=== PATIENT | female | born 1980 | race Caucasian/White ===

== ENCOUNTER 2016-10-11 12:56 | Emergency (ER) | payer MEDICAID ==
--- NOTE | 2016-10-11 13:30 | ER NURSING DOCUMENTATION ---
Nurse's Notes [facility] Name:Danish Ding Age:35 yrs Sex:Female :1980 Arrival Date:10/11/2016 Time:12:56 Bed1 Private MD:Irma Lerma Diagnosis:Acute Back Pain Presentation: 10/11 13:07 Presenting complaint: Patient states: pt states she has been moving for the last few st days and her spinal stenosis has flared up. pt also states that her "right hip popped out and back in and now hurts.". Transition of care: Home. Care prior to arrival: Medication(s) given: Ibuprofen. 13:07 Acuity: COMPA 3 st 13:07 Method Of Arrival: Private Vehicle st Triage Assessment: 13:11 General: Appears uncomfortable, Behavior is cooperative. Pain: Complains of pain in st thoracic area, lumbar area, left low back, right low back and buttocks Pain radiates to right leg and left leg Pain currently is 10 out of 10 on a pain scale. Neuro: Level of Consciousness is awake, alert, Oriented to person, place, time, event, Electrician'S Assistant are equal bilaterally. Cardiovascular: No deficits noted. Respiratory: No deficits noted. GI: No deficits noted. Musculoskeletal: Circulation, motion, and sensation intact. Historical: - Allergies: No known drug Allergies; - Home Meds: 1. Seroquel Oral - PMHx: spinal stinosis; - PSHx: CHOLECYSECTOMY; x4; - Tetanus: < 10 years. - Ebola Screening: : Patient denies exposure to infectious person. Patient denies travel to an Ebola-affected area in the 21 days before illness onset. . - Social history: Smoking status: Patient uses tobacco products, current every day smoker. Patient/guardian denies using alcohol, marijuana. Screenin:13 Infectious Disease Risk None. Abuse screen: Denies threats or abuse. Denies injuries st from another. pt states she feels safe at home. Nutritional screening: No deficits noted. Vital Signs: 13:12 BP 127 / 76; Pulse 105; Resp 18; Temp 97.6; Pulse Ox 96% on R/A; Pain 10/10; st ED Course: 12:57 Patient arrived in ED. ama 12:58 Irma Lerma MD is Private Physician. ama 13:07 Twoly, Summer, RN is Primary Nurse. st 13:[address] 13:13 Js Valadez MD is Attending Physician. matthew 13:13 Valuables Remains with patient. st 13:20 Irma eLrma MD is Referral Physician. matthew Administered Medications: No medications were administered Outcome: 13:21 Discharge ordered by MD. jm 13:29 Discharged to home ambulatory. st 13:29 Condition: stable 13:29 Discharge instructions given to patient, Instructed on discharge instructions, follow up and referral plans. medication usage, Prescriptions given X 1. 13:30 Patient left the ED. st 10/12 09:52 Discharge F/U Call: Unable to reach: no answer st 04 11:15 Discharge F/U Call: Unable to reach: no answer st 12:46 Discharge F/U Call: Spoke with: patient. other: Name: pt states she is not feeling st much better but she is functional. Signatures: Cindy Meehan RN RN st Meyer, John, MD MD jm Averdick, Andrew, Reg Reg ama
--- NOTE | 2016-10-11 13:30 | ER PHYSICIAN DOCUMENTATION ---
Physician Documentation [facility] Name:Danish Ding Age:35 yrs Sex:Female :1980 Arrival Date:10/11/2016 Time:12:56 Bed1 Private MD:Irma Lerma ED, John Disposition: 10/11/16 13:21 Discharged to Home/Self Care. Impression: Acute Back Pain. - Condition is Good. - Discharge Instructions: BACK SPASM, No Trauma. - Prescriptions for Cyclobenzaprine 10 mg Oral - take 1 tablet by ORAL route every 8 hours; 20 tablet. - Medical Reconciliation form form. - Follow up: Irma Lerma MD; When: 4- 6 days; Reason: Continuance of care. - Problem is new. - Symptoms have improved. HPI: 10/11 14:50 This 35 yrs old Female presents to ER via Private Vehicle with complaints of jm Back Pain. 14:50 The patient presents with pain that is acute, that is chronic. The symptoms are located jm in the right low back. The pain radiates down the patient's right lower extremity. Associated signs and symptoms: Pertinent negatives: numbness, urinary retention, weakness. The problem was sustained when lifting boxes, furniture. Pt w hx of spinal stenosis and was moving boxes and furniture for the past few days. She feels her chronic back issues have flared up. . Historical: - Allergies: No known drug Allergies; - Home Meds: 1. Seroquel Oral - PMHx: spinal stinosis; - PSHx: CHOLECYSECTOMY; x4; - Tetanus: < 10 years. - Ebola Screening: : Patient denies exposure to infectious person. Patient denies travel to an Ebola-affected area in the 21 days before illness onset. . - Social history: Smoking status: Patient uses tobacco products, current every day smoker. Patient/guardian denies using alcohol, marijuana. ROS: 14:50 Constitutional: Negative for fatigue, fever. jm 14:50 Back: Positive for pain at rest, pain with movement, radiated pain. 14:50 : Negative for difficulty urinating, bladder incontinence. 14:50 MS/extremity: Positive for pain, paresthesias, Negative for tingling. 14:50 Neuro: Negative for numbness, weakness. Exam: 14:50 Constitutional: The patient appears alert, awake. 14:50 Respiratory: Respirations: normal, Breath sounds: are normal. 14:50 Back: pain, that is moderate, of the right low back, CVA tenderness, is absent. 14:50 : CVA tenderness, is absent, Bladder: distension, is not appreciated. 14:50 Neuro: Motor: strength is 5/5 in all extremities, Sensation: is normal, Gait: is steady, at a normal pace, Deep tendon reflexes are 2+ (normal) in the right patellar and left patellar. 14:50 Psych: Behavior/mood is pleasant, Affect is calm. Vital Signs: 13:12 BP 127 / 76; Pulse 105; Resp 18; Temp 97.6; Pulse Ox 96% on R/A; Pain 10/10; st MDM: 13:13 Patient medically screened. 14:55 Differential diagnosis: sprain, back flare up. radicular sx (sciatica). Data reviewed: matthew vital signs, nurses notes, and as a result, I will discharge patient. Counseling: I had a detailed discussion with the patient and/or guardian regarding: the historical points, exam findings, and any diagnostic results supporting the discharge/admit diagnosis, the need for outpatient follow up, with the patient's primary care provider. ED course: Pt has had flexeril in the past, so some was rx'd for home. PT told to f/u w PCP next week. . Dispensed Medications: No medications were administered Signatures: Cindy Meehan RN RN st Meyer, John, MD MD jm
== END 2016-10-11 13:30 | disposition home or self-care (01) ==
LOC: ER 12:56
DX: M54.5 Low back pain (principal); R20.2 Paresthesia of skin; M48.00 Spinal stenosis, site unspecified; Z79.899 Other long term (current) drug therapy
CPT/HCPCS: 99282

== ENCOUNTER 2016-12-02 09:42 | Emergency (ER) | payer MEDICAID ==
--- NOTE | 2016-12-02 10:30 | ER NURSING DOCUMENTATION ---
Nurse's Notes [facility] Name:Danish Ding Age:35 yrs Sex:Female :1980 Arrival Date:12/02/2016 Time:09:42 Bed5 Private MD: Diagnosis:Acute Back Pain Presentation: 12/02 09:44 Acuity: COMPA 4 tg 09:51 Presenting complaint: Patient states: that after lifting some heaving boxes of sand sc1 yesterday, she developed upper back pain. Pain is in the right lower scapular area. Transition of care: Home. Notified ED Physician of patient's arrival and CC Dr. Sam notified. 09:51 Method Of Arrival: Private Vehicle sc1 Triage Assessment: 09:54 General: Appears uncomfortable, well developed, well nourished, well groomed, Behavior sc1 is cooperative, pleasant. Pain: Complains of pain in right subscapular area. Musculoskeletal: Circulation, motion, and sensation intact Capillary refill < 3 seconds. Historical: - Allergies: No known drug Allergies; - Home Meds: 1. Seroquel Oral - PMHx: spinal stinosis; Acute Back Pain (October 11, 2016); - PSHx: CHOLECYSECTOMY; x4; - Ebola Screening: : Patient negative for fever greater than or equal to 101.5 degrees Fahrenheit, and additional compatible Ebola Virus Disease symptoms. Patient denies exposure to infectious person. Patient denies travel to an Ebola-affected area in the 21 days before illness onset. No symptoms or risks identified at this time. . - Immunization history: Flu Vaccine None. - Social history: Smoking status: Patient states was never smoker of tobacco. Patient/guardian denies using alcohol, street drugs, IV drugs, marijuana. Screenin:55 Infectious Disease Risk None. Abuse screen: Denies threats or abuse. Nutritional sc1 screening: No deficits noted. Vital Signs: 09:55 BP 129 / 77; Pulse 93; Resp 16; Temp 98.0; Pulse Ox 94% on R/A; sc1 ED Course: 09:43 Patient arrived in ED. jt 09:43 Irma Lerma MD is Private Physician. jt 09:44 Triage completed. tg 09:44 Dary Givens RN is Primary Nurse. sc1 09:51 Jose De Jesus Sam MD is Attending Physician. sc 09:55 Notified ED Physician of patient's arrival and chief complaint. Dr. Sam notified. Arm ny1 band placed on Bed in low position Call Light in Reach Gowned HOB Elevated. 10:15 [facility] is Referral Physician. ny 10:15 Valuables Remains with patient. ny1 Administered Medications: No medications were administered Outcome: 10:15 Discharge ordered by . ny 10:15 Discharged to home [place]ulatory. [facility] 10:15 Condition: stable 10:15 Discharge instructions given to patient, Instructed on discharge instructions, follow up and referral plans. medication usage, Demonstrated understanding of instructions, medications, Prescriptions given X 1. 10:29 Patient left the ED. [facility] 12/03 14:21 Discharge F/U Call: Unable to reach: left voicemail: estuardo Signatures: Jose E Monzon RN RN Jayde Martinez RN RN Dary Harper RN RN sc1 Jose De Jesus Sam MD MD sc Tennant, Joanne jt
--- NOTE | 2016-12-02 10:30 | ER PHYSICIAN DOCUMENTATION ---
Physician Documentation [facility] Name:Danish Ding Age:35 yrs Sex:Female :1980 Arrival Date:12/02/2016 Time:09:42 Bed5 Private MD: Jose De Jesus Villareal Disposition: 12/02/16 10:15 Discharged to Home/Self Care. Impression: Acute Back Pain. - Condition is Good. - Discharge Instructions: BACK PAIN (Acute or Chronic), BACK CARE TIPS. - Prescriptions for Cyclobenzaprine 10 mg Oral Tablet - take 1 tablet by ORAL route every 8 hours; 30 tablet. - Medical Reconciliation form form. - Follow up: [facility] [place]; When: 4- 6 days; Reason: Recheck today's complaints, Continuance of care. - Problem is new. - Symptoms are unchanged. HPI: 12/02 10:23 This 35 yrs old Female presents to ER via Private Vehicle with complaints of sc Back Pain. 10:23 The patient presents with pain that is acute, and an injury, lifting bags of sands. The sc symptoms are located in the right scapular area. Onset: The symptoms/episode began/occurred yesterday. The pain does not radiate. Associated signs and symptoms: The patient has no apparent associated signs or symptoms. Severity of symptoms: At their worst the symptoms were moderate. The patient has experienced similar episodes in the past, multiple times, and the symptoms today are exactly the same, known back problems, spinal stenosis on MRI, non-focal exam. Historical: - Allergies: No known drug Allergies; - Home Meds: 1. Seroquel Oral - PMHx: spinal stinosis; Acute Back Pain (October 11, 2016); - PSHx: CHOLECYSECTOMY; x4; - Ebola Screening: : Patient negative for fever greater than or equal to 101.5 degrees Fahrenheit, and additional compatible Ebola Virus Disease symptoms. Patient denies exposure to infectious person. Patient denies travel to an Ebola-affected area in the 21 days before illness onset. No symptoms or risks identified at this time. . - Immunization history: Flu Vaccine None. - Social history: Smoking status: Patient states was never smoker of tobacco. Patient/guardian denies using alcohol, street drugs, IV drugs, marijuana. ROS: 10:26 Constitutional: Negative for fever, chills, and weight loss. sc Eyes: Negative for injury, pain, redness, and discharge. Neck: Negative for injury, pain, and swelling. Cardiovascular: Negative for chest pain, palpitations, and edema. Respiratory: Negative for shortness of breath, cough, wheezing, and pleuritic chest pain. Skin: Negative for injury, rash, and discoloration. 10:26 Neuro: Negative for headache, weakness, numbness, tingling, and seizure. sc 10:26 Back: Positive for pain at rest. Exam: Constitutional: This is a well developed, well nourished patient who is awake, alert, and in no acute distress. Head/Face: Normocephalic, atraumatic. Eyes: Pupils equal round and reactive to light, extra-ocular motions intact. Lids and lashes normal. Conjunctiva and sclera are non-icteric and not injected. Cornea within normal limits. Periorbital areas with no swelling, redness, or edema. Neck: Trachea midline, no thyromegaly or masses palpated, and no cervical lymphadenopathy. Supple, full range of motion without nuchal rigidity, or vertebral point tenderness. No meningismus. Chest/axilla: Normal chest wall appearance and motion. Nontender with no deformity. No lesions are appreciated. Cardiovascular: Regular rate and rhythm with a normal S1 and S2. No gallops, murmurs, or rubs. Normal PMI, no JVD. No pulse deficits. 10:28 Respiratory: Lungs have equal breath sounds bilaterally, clear to auscultation and va percussion. No rales, rhonchi or wheezes noted. No increased work of breathing, no retractions or nasal flaring. 10:28 Back: pain, that is moderate, ROM is painful. 10:28 Neuro: Exam negative for acute changes, Sensation: is normal, Gait: is steady, Deep tendon reflexes are 2+ (normal) in the . Vital Signs: 09:55 BP 129 / 77; Pulse 93; Resp 16; Temp 98.0; Pulse Ox 94% on R/A; sc1 MDM: 09:51 Patient medically screened. va 10:29 Data reviewed: vital signs, nurses notes, old medical records, and as a result, I will sc discharge patient. Counseling: I had a detailed discussion with the patient and/or guardian regarding: the historical points, exam findings, and any diagnostic results supporting the discharge/admit diagnosis, the need for outpatient follow up, to return to the emergency department if symptoms worsen or persist or if there are any questions or concerns that arise at home. Dispensed Medications: No medications were administered Signatures: Dary Givens RN RN sc1 Jose De Jesus Sam MD MD sc
== END 2016-12-02 10:30 | disposition home or self-care (01) ==
LOC: ER 09:42
DX: M54.89 Other dorsalgia (principal)
CPT/HCPCS: 99282